=== PATIENT | female | born 1955 ===

== ENCOUNTER 2022-01-04 23:08 | Emergency (ER) | payer MEDICARE, BC ==
[2022-01-04] MEDS ORDERED: Sodium Chloride 0.9% 10 ML Syringe FLUSH PRN (23:30)
[2022-01-05 00:08] LABS: ANION GAP 17.8 mEq/L (7-13)
[2022-01-05] MEDS ORDERED: fentaNYL 100 MCG/2 ML SDV IVPUSH ONE (00:36)
[2022-01-05] MEDS ORDERED: Sodium Chloride 0.9% 1,000 ML IV SCH (00:45)
[2022-01-05] MEDS: Potassium Chloride Riders 10 MEQ in Premix Bag 1 BAG IV SCH ×4 (00:52→04:10)
[2022-01-05 06:02] LABS: ANION GAP 11.9 mEq/L (7-13)
== END 2022-01-05 07:02 | disposition home or self-care (01) ==
LOC: DL.ED 23:08
DX: E87.6 Hypokalemia (principal)
CPT/HCPCS: 36415; 80048; 80053; 81003; 83605; 83690; 84484; 85025; 93005; 93010; 96374; 99283; 99284-25; J3010; J3480; J3490; J7030

== ENCOUNTER 2022-10-16 07:32 | Emergency (ER) | payer MEDICARE, BC ==
[~2022-10-16 07:32] MED LIST: Iopamidol 755 Mg/ML 100 ML Bottle IVPUSH ONE; Sodium Chloride 0.9% 10 ML Syringe FLUSH PRN
[2022-10-16] MEDS ORDERED: Sodium Chloride 0.9% 1,000 ML IV SCH (07:45)
[2022-10-16 07:48] LABS: ANION GAP 14.4 mEq/L (7-13); CHLORIDE,CL 98 mmol/L (98-107); SODIUM,NA 134 mmol/L (136-145)
[2022-10-16 07:50] LABS: ESTIMATED GFR 34 mL/min (>=60)
[2022-10-16 08:05] LABS: CORONAVIRUS COVID-19 NAA NEGATIVE (NEGATIVE); RESPIRATORY SYNCYTIAL VIR NAA NEGATIVE (NEGATIVE)
== END 2022-10-16 09:14 | disposition home or self-care (01) ==
LOC: DL.ED 07:32
DX: R53.1 Weakness (principal); T50.905A Adverse effect of unspecified drugs, medicaments and biological substances, initial encounter; I10 Essential (primary) hypertension; E11.9 Type 2 diabetes mellitus without complications; Z86.16 Personal history of COVID-19; Z79.82 Long term (current) use of aspirin; Z20.822 Contact with and (suspected) exposure to COVID-19
CPT/HCPCS: 0241U; 36415; 70450; 70496; 70498; 80053; 80307; 81001; 82607; 82746; 82947; 83605; 83735; 84484; 85025; 85610; 86140; 87040; 87077; 87086; 87088; 87186; 93005; 96360; 99285; J3490; J7030; Q9967; 93010; 99284

== ENCOUNTER 2022-10-17 08:56 | Inpatient (IN) | payer MEDICARE, BC ==
[2022-10-17] MEDS ORDERED: Acetaminophen/HYDROcodone 325-5 MG Tab PO PRN (09:47)
[2022-10-17] MEDS ORDERED: Polyethylene Glycol 3350 Powder 17 GM Packet PO PRN (09:49)
[2022-10-17] MEDS ORDERED: Magnesium Hydroxide 400 MG/5 ML Susp 30 ML Cup PO PRN (09:49)
[2022-10-17] MEDS ORDERED: HYDROmorphone 0.5 MG/0.5 ML Syringe IVPUSH PRN (09:49)
[2022-10-17] MEDS ORDERED: Sodium Chloride 0.9% 10 ML Syringe FLUSH PRN (09:49)
[2022-10-17] MEDS ORDERED: Bisacodyl 5 MG Tab PO PRN (09:49)
[2022-10-17] MEDS ORDERED: Ondansetron 4 MG/2 ML SDV IVPUSH PRN (09:49)
[2022-10-17] MEDS ORDERED: Albuterol/Ipratropium 3.0-0.5 MG/3 ML Neb Soln NEB PRN (09:49)
[2022-10-17] MEDS ORDERED: Glucagon,Human Recombinant 1 MG Vial IM PRN (09:51)
[2022-10-17] MEDS ORDERED: 50% Dextrose in Water 50 ML Syringe IVPUSH PRN (09:51)
[2022-10-17 10:52] LABS: ANION GAP 14.4 mEq/L (7-13); CHLORIDE,CL 100 mmol/L (98-107); SODIUM,NA 136 mmol/L (136-145)
[2022-10-17 11:06] LABS: ESTIMATED GFR 38 mL/min (>=60)
[2022-10-17] MEDS: Insulin Lispro 100 Units/ML 3 ML Vial SUBCUT SCH ×2 (12:31→19:11)
[2022-10-17] MEDS: Piperacillin/Tazobactam 3.375 GM in Sodium Chloride 0.9% 100 ML IV SCH ×3 (12:54→23:30)
[2022-10-17] MEDS: Acetaminophen 325 MG Tab PO PRN ×2 (13:17→20:01)
[2022-10-17] MEDS: Sodium Chloride 0.9% 10 ML Syringe FLUSH SCH (20:02)
[2022-10-17] MEDS: glipiZIDE 5 MG Tab.ER PO SCH (20:32)
[2022-10-17] MEDS: Metoprolol Succinate 50 MG Tab.ER PO SCH (20:33)
[2022-10-17] MEDS: Famotidine 20 MG Tab PO SCH (20:33)
[2022-10-17] MEDS: Saccharomyces Boulardii (Probiotic) 250 MG Cap PO SCH (20:34)
[2022-10-17] MEDS ORDERED: Sodium Chloride 0.9% 1,000 ML IV SCH (23:00)
[2022-10-18] MEDS: Piperacillin/Tazobactam 3.375 GM in Sodium Chloride 0.9% 100 ML IV SCH (05:40)
[2022-10-18 07:22] LABS: ANION GAP 17.3 mEq/L (7-13)
[2022-10-18] MEDS ORDERED: Magnesium Sulfate/Water 2 GM in Premix Bag 1 BAG IV ONE (07:59)
[2022-10-18] MEDS ORDERED: Potassium Chloride 10 MEQ Tab.ER PO SCH (08:00)
[2022-10-18] MEDS: Saccharomyces Boulardii (Probiotic) 250 MG Cap PO SCH ×2 (08:17→20:15)
[2022-10-18] MEDS: Cholecalciferol (Vitamin D3) 25 MCG Tab PO SCH (08:17)
[2022-10-18] MEDS: buPROPion 150 MG Tab.ER PO SCH (08:18)
[2022-10-18] MEDS: Aspirin 81 MG Tab.EC PO SCH (08:18)
[2022-10-18] MEDS: Famotidine 20 MG Tab PO SCH ×2 (08:18→20:21)
[2022-10-18] MEDS: Escitalopram 10 MG Tab PO SCH (08:19)
[2022-10-18] MEDS: Insulin Lispro 100 Units/ML 3 ML Vial SUBCUT SCH ×3 (08:21→17:08)
[2022-10-18] MEDS: Sodium Chloride 0.9% 10 ML Syringe FLUSH SCH ×2 (08:24→20:21)
[2022-10-18] MEDS: Acetaminophen 325 MG Tab PO PRN (08:32)
[2022-10-18] MEDS ORDERED: Escitalopram 10 MG Tab PO SCH (09:00)
[2022-10-18] MEDS: IBRANCE 125 MG PO SCH (12:08)
[2022-10-18] MEDS: Non-Formulary Medication 1 Each PO SCH ×2 (17:49→17:50)
[2022-10-18] MEDS: Ciprofloxacin in D5W 400 MG in Premix Bag 1 BAG IV SCH ×2 (20:15)
[2022-10-18] MEDS: glipiZIDE 5 MG Tab.ER PO SCH (20:16)
[2022-10-18] MEDS: Metoprolol Succinate 50 MG Tab.ER PO SCH (20:20)
[2022-10-19 07:33] LABS: ANION GAP 14.1 mEq/L (7-13)
[2022-10-19] MEDS: Sodium Chloride 0.9% 10 ML Syringe FLUSH SCH ×2 (08:30→22:04)
[2022-10-19] MEDS: Ciprofloxacin in D5W 400 MG in Premix Bag 1 BAG IV SCH ×4 (08:35→20:47)
[2022-10-19] MEDS: Aspirin 81 MG Tab.EC PO SCH (08:39)
[2022-10-19] MEDS: Cholecalciferol (Vitamin D3) 25 MCG Tab PO SCH (08:39)
[2022-10-19] MEDS: Saccharomyces Boulardii (Probiotic) 250 MG Cap PO SCH ×2 (08:39→20:54)
[2022-10-19] MEDS: Escitalopram 10 MG Tab PO SCH (08:40)
[2022-10-19] MEDS: buPROPion 150 MG Tab.ER PO SCH (08:40)
[2022-10-19] MEDS: Insulin Lispro 100 Units/ML 3 ML Vial SUBCUT SCH ×3 (08:44→17:03)
[2022-10-19] MEDS: Famotidine 20 MG Tab PO SCH ×2 (08:52→20:55)
[2022-10-19] MEDS ORDERED: IBRANCE 125 MG PO SCH (12:00)
[2022-10-19] MEDS: IBRANCE 125 MG PO SCH (12:28)
[2022-10-19] MEDS: Letrozole 2.5 MG Tablet**OWN MED PO SCH (12:29)
[2022-10-19] MEDS: Metoprolol Succinate 50 MG Tab.ER PO SCH (20:54)
[2022-10-19] MEDS: glipiZIDE 5 MG Tab.ER PO SCH (20:55)
[2022-10-20 07:06] LABS: ANION GAP 12.4 mEq/L (7-13)
[2022-10-20] MEDS: Insulin Lispro 100 Units/ML 3 ML Vial SUBCUT SCH (08:26)
[2022-10-20] MEDS: Saccharomyces Boulardii (Probiotic) 250 MG Cap PO SCH (09:00)
[2022-10-20] MEDS: buPROPion 150 MG Tab.ER PO SCH (09:00)
[2022-10-20] MEDS: Cholecalciferol (Vitamin D3) 25 MCG Tab PO SCH (09:01)
[2022-10-20] MEDS: Aspirin 81 MG Tab.EC PO SCH (09:01)
[2022-10-20] MEDS: Escitalopram 10 MG Tab PO SCH (09:02)
[2022-10-20] MEDS: Ciprofloxacin in D5W 400 MG in Premix Bag 1 BAG IV SCH ×2 (09:03)
[2022-10-20] MEDS: Famotidine 20 MG Tab PO SCH (09:04)
[2022-10-20] MEDS: Sodium Chloride 0.9% 10 ML Syringe FLUSH SCH (09:04)
[2022-10-20] MEDS ORDERED: Ciprofloxacin 500 MG Tab PO ONE (10:58)
[2022-10-20] MEDS: Letrozole 2.5 MG Tablet**OWN MED PO SCH (11:08)
== END 2022-10-20 11:21 | disposition home or self-care (01) | DRG 689 ==
LOC: DL.MS 09:30
PROVIDERS: ADMIT Internal Medicine; ATTEND Internal Medicine
DX: N39.0 Urinary tract infection, site not specified (principal); D61.810 Antineoplastic chemotherapy induced pancytopenia; N17.9 Acute kidney failure, unspecified; R78.81 Bacteremia; B96.89 Other specified bacterial agents as the cause of diseases classified elsewhere; E87.6 Hypokalemia; E83.42 Hypomagnesemia; I10 Essential (primary) hypertension; E78.5 Hyperlipidemia, unspecified; C50.919 Malignant neoplasm of unspecified site of unspecified female breast; E78.00 Pure hypercholesterolemia, unspecified; F32.A Depression, unspecified; Z79.82 Long term (current) use of aspirin; Z79.899 Other long term (current) drug therapy; Z90.710 Acquired absence of both cervix and uterus; Z86.16 Personal history of COVID-19; Z85.528 Personal history of other malignant neoplasm of kidney; R73.9 Hyperglycemia, unspecified
CPT/HCPCS: 36415; 80053; 82947; 83605; 83735; 85025; 86140; 87040; 99223; 99233; 99238; A9270-GY; J0744; J1815-GY; J2405; J2543; J3475; J3490; J7030; J7050

== ENCOUNTER 2022-12-23 05:00 | Emergency (ER) | payer MEDICARE, BC ==
[2022-12-23] MEDS ORDERED: Ondansetron 4 MG/2 ML SDV IVPUSH ONE (05:21)
[2022-12-23] MEDS ORDERED: Sodium Chloride 0.9% 10 ML Syringe FLUSH PRN (05:21)
[2022-12-23 05:50] LABS: ANION GAP 14.5 mEq/L (7-13); CHLORIDE,CL 99 mmol/L (98-107); SODIUM,NA 138 mmol/L (136-145)
[2022-12-23 05:51] LABS: ESTIMATED GFR 33 mL/min (>=60)
[2022-12-23] MEDS ORDERED: Metoclopramide 10 MG/2 ML SDV IVPUSH ONE (06:01)
[2022-12-23 06:04] LABS: PTT,PARTIAL THROMBOPLSTIN TIME 24.9 SEC (22.0-34.0)
[2022-12-23] MEDS ORDERED: Sodium Chloride 0.9% 1,000 ML IV ONE (06:22)
[2022-12-23] MEDS ORDERED: Acetaminophen/oxyCODONE 325-5 MG Tab PO ONE (06:26)
== END 2022-12-23 07:15 | disposition home or self-care (01) ==
LOC: DL.ED 05:00
DX: M54.50 Low back pain, unspecified (principal); R11.0 Nausea; I10 Essential (primary) hypertension; Z86.16 Personal history of COVID-19; Z79.82 Long term (current) use of aspirin
CPT/HCPCS: 36415; 72100; 80053; 82150; 83605; 83690; 83735; 84145; 85025; 85610; 85730; 86140; 96374; 96375; 99283; 99284; A9270; J2405; J2765; J7030; J3490